=== PATIENT | female | born 1980 | race Caucasian/White ===

== ENCOUNTER → 2017-05-25 | Outpatient (REF) | payer OTHER ==
[2017-05-25 14:33] LABS: RETIC HEMOGLOBIN EQUIVALENT 22.3 pg (24-36); RETICULOCYTE # 81.6 10^9/L (17-77); RETICULOCYTE % 1.9 % (0.5-1.5)
[2017-05-25 14:58] LABS: FERRITIN 6 NG/ML (8-252); IRON (FE) 133 UG/DL (50-170); PERCENT SATURATION 24.9 % (13.2-45.0); TOTAL IRON BINDING CAPACITY 534 UG/DL (250-450)
[2017-05-25 15:09] LABS: VITAMIN B12 LEVEL 473 PG/ML (247-911)
[2017-05-25 15:10] LABS: FOLATE 19.9 NG/ML (>5.4)
== END ==
LOC: M LAB REF 13:06
DX: D50.9 Iron deficiency anemia, unspecified (principal)

== ENCOUNTER → 2022-03-15 | Outpatient (CLI) | payer OTHER ==
[~2022-03-15] MED LIST: CALC500C16 PO; FAMO1TAB11 PO; FERR325T82 PO; FOLTTAB9 PO; LEXA1TAB2 PO; METF-838 PO; NORE5TAB PO; OMEP-173 PO; PROB250C PO; VENL37.598; VITA1CAP25 PO
== END ==
LOC: M LABSMTC 10:30
PROVIDERS: ATTEND Anesthesiology
DX: Z01.812 Encounter for preprocedural laboratory examination (principal); Z11.52 Encounter for screening for COVID-19

== ENCOUNTER 2022-03-20 09:03 | Day surgery (SDC) | payer OTHER ==
[~2022-03-20] VITALS: Ht 167.6 cm; Wt 119.0 kg
[~2022-03-20 09:03] MED LIST changes: +NS 1,000 ML IV ONE
[2022-03-20] MEDS ORDERED: IRON100V IV (09:35)
[2022-03-20] MEDS ORDERED: propofoL 500 MG/50 ML VIAL As Ordered ONE ×2 (10:32→10:33)
[2022-03-20 11:35] VITALS: BP 116/67
== END 2022-03-20 11:48 | disposition home or self-care (01) ==
LOC: M OPP 09:03
PROVIDERS: ATTEND Internal Medicine Gastroenterology
DX: D50.9 Iron deficiency anemia, unspecified (principal); K63.5 Polyp of colon; K64.8 Other hemorrhoids; K44.9 Diaphragmatic hernia without obstruction or gangrene; Z98.0 Intestinal bypass and anastomosis status; F41.9 Anxiety disorder, unspecified; F17.210 Nicotine dependence, cigarettes, uncomplicated; Z88.6 Allergy status to analgesic agent; Z79.899 Other long term (current) drug therapy